=== PATIENT | male | born 1990 | race American Indian/Alaskan Native ===

== ENCOUNTER 2016-07-29 10:31 | Emergency (ER) | payer MEDICAID, OTHER ==
[2016-07-29] MEDS ORDERED: Ondansetron 8 MG Tab.DIS PO ONE (11:11)
[2016-07-29] MEDS ORDERED: Alum Hydroxide/Mag Hydroxide 15 ML, Lidocaine 2% 15 ML PO STA ×2 (11:11)
--- NOTE | 2016-07-29 11:57 | EDM.PDOC ---
ED HPI GENERAL MEDICAL PROBLEM - General Chief Complaint: Abdominal Pain Stated Complaint: STOMACH PAIN Time Seen by Provider: 07/29/16 10:32 Source of Information: Reports: Patient, Family History Limitations: Reports: No Limitations - History of Present Illness INITIAL COMMENTS - FREE TEXT/NARRATIVE: 26 years old NA come to the ed due to mid upper abd. pain one day after he ate out last night. Pt felt nauseated, did not vomit. Pain is located at his mid upper abdomen. Pt denies other acute medical issues at this time. Onset: Gradual Onset Date: 07/28/16 Onset Time: 08:00 Duration: Day(s):, Getting Worse Location: Reports: Abdomen Quality: Reports: Ache, Burning Severity: Moderate Improves with: Reports: None Worsens with: Reports: None Associated Symptoms: Reports: No Other Symptoms L upper abdomen Pain Score (Numeric/FACES): 0 - Related Data Allergies Allergy/AdvReac Type Severity Reaction Status Date / Time amoxicillin [Amoxicillin] Allergy Hives Verified 07/29/16 10:39 Penicillins Allergy Hives Verified 07/29/16 10:39 Home Meds: Home Meds Famotidine [Pepcid] 40 mg PO DAILY #20 tablet 07/29/16 [Rx] Ondansetron [Zofran ODT] 4 mg PO Q6H PRN #14 tab.dis 07/29/16 [Rx] Past Medical History - Past Health History Medical/Surgical History: Denies Medical/Surgical History Cardiovascular History: Reports: Hypertension Dermatologic History: Reports: Eczema - Infectious Disease History Infectious Disease History: Reports: Chicken Pox Social & Family History - Family History Family Medical History: Noncontributory - Tobacco Use Smoking Status *Q: Current Every Day Smoker Years of Tobacco use: 12 Packs/Tins Daily: 0.5 Used Tobacco, but Quit: No Second Hand Smoke Exposure: No - Caffeine Use Caffeine Use: Reports: Coffee, Energy Drinks, Soda, Tea - Alcohol Use Days Per Week of Alcohol Use: 1 Number of Drinks Per Day: 12 Total Drinks Per Week: 12 - Recreational Drug Use Recreational Drug Use: No Drug Use in Last 12 Months: Yes Recreational Drug Type: Reports: Marijuana/Hashish ED ROS GENERAL - Review of Systems Review Of Systems: See Below Constitutional: Reports: No Symptoms HEENT: Reports: No Symptoms Respiratory: Reports: No Symptoms Cardiovascular: Reports: No Symptoms Endocrine: Reports: No Symptoms GI/Abdominal: Reports: Abdominal Pain : Reports: No Symptoms Musculoskeletal: Reports: No Symptoms Skin: Reports: No Symptoms Neurological: Reports: No Symptoms Psychiatric: Reports: No Symptoms Hematologic/Lymphatic: Reports: No Symptoms Immunologic: Reports: No Symptoms ED EXAM, GI/ABD - Physical Exam Exam: See Below Exam Limited By: No Limitations General Appearance: Alert, WD/WN, Mild Distress Eyes: Bilateral: Normal Appearance Ears: Normal External Exam Nose: Normal Inspection, Normal Mucosa Throat/Mouth: Normal Inspection, Normal Lips Head: Atraumatic, Normocephalic Neck: Normal Inspection, Supple, Non-Tender, Full Range of Motion Respiratory/Chest: No Respiratory Distress, Lungs Clear, Normal Breath Sounds Cardiovascular: Normal Peripheral Pulses, Regular Rate, Rhythm, No Edema GI/Abdominal: Tenderness (epigastric) (Male) Exam: Deferred Rectal (Males) Exam: Deferred Back Exam: Normal Inspection, Full Range of Motion Extremities: Normal Inspection, Normal Range of Motion, Non-Tender Neurological: Alert, Oriented, CN II-XII Intact, Normal Cognition, Normal Gait, No Motor/Sensory Deficits Psychiatric: Normal Affect, Normal Mood Skin Exam: Warm, Dry, Intact, Normal Color Lymphatic: No Adenopathy Course - Vital Signs Text/Narrative:: 26 years old NA come to the ed due to mid upper abd. pain one day after he ate out last night. Pt felt nauseated, did not vomit. Pain is located at his mid upper abdomen. Pt denies other acute medical issues at this time. No Bleed. PE: Epigastric tenderness Labs: Elevated liver enzymes,(ASL 30 ALT 53 alk phos 135) not new, wbc 13.3 Amylase 59 Impression: gastritis, superficial TxL GI cocktail, Zofran Reexam: Pain subsided 100% Plan: D/c with instructions. Last Recorded V/S: Last Vital Signs Temp 36.5 C 07/29/16 10:32 Pulse 75 07/29/16 10:32 Resp 18 07/29/16 11:57 BP 124/70 07/29/16 11:57 Pulse Ox 99 07/29/16 11:57 - Orders/Labs/Meds Orders: Active Orders 24 hr Category Date Time Status EKG Documentation Completion [RC] ASDIRECTED Care 07/29/16 14:44 Inactive EKG 12 Lead [EK] Routine Ther 07/29/16 14:44 Stop Req Labs: Laboratory Tests 07/29/16 07/29/16 07/29/16 Range/Units 10:55 10:55 10:55 WBC 13.7 H (4.5-12.0) X10-3/uL RBC 5.68 (4.30-5.75) x10(6)uL Hgb 16.7 H (11.5-15.5) g/dL Hct 49.6 (30.0-51.3) % MCV 87.3 (80-96) fL MCH 29.4 (27.7-33.6) pg MCHC 33.7 (32.2-35.4) g/dL RDW 12.7 (11.5-15.5) % Plt Count 265 (125-369) X10(3)uL MPV 8.6 (7.4-10.4) fL Neutrophils % (Manual) 63 (46-82) % Band Neutrophils % 1 (0-6) % Lymphocytes % (Manual) 19 (13-37) % Monocytes % (Manual) 3 L (4-12) % Eosinophils % (Manual) 14 H (0-5) % Sodium 138 (135-145) mmol/L Potassium 3.9 (3.5-5.3) mmol/L Chloride 105 D (100-110) mmol/L Carbon Dioxide 26 (23-29) mmol/L BUN 12 (5-20) mg/dL Creatinine 0.9 (0.6-1.3) mg/dL Est Cr Clr Drug Dosing 143.64 mL/min Estimated GFR (MDRD) > 60 (>60) BUN/Creatinine Ratio 13.3 (9-20) Glucose 94 (80-116) mg/dL Calcium 9.6 (8.6-10.2) mg/dL Total Bilirubin 0.7 (0.1-1.3) mg/dL Direct Bilirubin 0.1 (0.1-0.2) mg/dL AST 30 H D (5-27) IU/L ALT 53 H D (14-26) IU/L Alkaline Phosphatase 135 H (56-112) IU/L Total Protein 8.0 (6.0-8.0) g/dL Albumin 4.2 (3.5-5.2) g/dL Amylase 59 (28-100) U/L Meds: Medications Discontinued Medications Generic Name Dose Route Start Last Admin Trade Name Freq PRN Reason Stop Dose Admin Al Hydroxide/Mg Hydroxide 15 0 ml 07/29/16 11:11 07/29/16 11:23 ml/ Lidocaine HCl 15 ml PO 07/29/16 11:12 15 ml ONETIME STA Administration Sodium Chloride 1,000 mls @ 999 mls/hr 07/29/16 14:45 Normal Saline IV ASDIRECTED [facility] Ondansetron HCl 8 mg 07/29/16 11:11 07/29/16 11:23 Zofran Odt PO 07/29/16 11:12 8 mg ONETIME ONE Administration Departure - Departure Time of Disposition: 11:55 Disposition: Home, Self-Care 01 Condition: good Clinical Impression: Gastritis Qualifiers: Gastritis type: unspecified gastritis Chronicity: acute Gastritis bleeding: without bleeding Qualified Code(s): K29.00 - Acute gastritis without bleeding - Discharge Information Prescriptions: Famotidine [Pepcid] 40 mg PO DAILY #20 tablet Ondansetron [Zofran ODT] 4 mg PO Q6H PRN #14 tab.dis PRN Reason: Nausea Instructions: Gastritis, Adult Referrals: PCP,None [Primary Care Provider] - Forms: ED Department Discharge Additional Instructions: Please take the meds as recommended, please follow up, come back if your symptoms get worse acutely. - My Orders Last 24 Hours: My Active Orders 07/29/16 14:44 EKG Documentation Completion [RC] ASDIRECTED EKG 12 Lead [EK] Routine - Assessment/Plan Last 24 Hours: My Active Orders 07/29/16 14:44 EKG Documentation Completion [RC] ASDIRECTED EKG 12 Lead [EK] Routine
[2016-07-29 11:59] VITALS: BP 124/70
[2016-07-29] MEDS ORDERED: Sodium Chloride 0.9% 1,000 ML IV SCH (14:45)
== END 2016-07-29 12:03 | disposition home or self-care (01) ==
LOC: FB.ED 10:31
DX: K29.00 Acute gastritis without bleeding (principal); I10 Essential (primary) hypertension; F17.210 Nicotine dependence, cigarettes, uncomplicated; Z88.0 Allergy status to penicillin; Z88.8 Allergy status to other drugs, medicaments and biological substances; Z88.1 Allergy status to other antibiotic agents
CPT/HCPCS: 36415; 80048; 80076; 82150; 85025; 99283; 99284; A9270

== ENCOUNTER 2017-06-07 13:23 | Emergency (ER) | payer MEDICAID, OTHER ==
[2017-06-07] MEDS ORDERED: Bupivacaine 0.5% 30 ML SDV INFILT ONE (13:24)
[2017-06-07 13:44] VITALS: BP 122/75
[2017-06-07] MEDS ORDERED: Cephalexin 500 MG Cap PO ONE (13:57)
[2017-06-07] MEDS ORDERED: Ibuprofen 600 MG Tab PO ONE (13:59)
--- NOTE | 2017-06-07 14:06 | EDM.PDOC ---
ED HPI GENERAL MEDICAL PROBLEM - General Chief Complaint: Laceration Stated Complaint: RT HAND BLEEDING Time Seen by Provider: 06/07/17 13:37 Source of Information: Reports: Patient, Family History Limitations: Reports: No Limitations - History of Present Illness INITIAL COMMENTS - FREE TEXT/NARRATIVE: 27 y.o. N A came to the ed after he was drinking last night and injured his right hand/palm on a nail sticking out of a door frame at about 13.00 today. Wound was bleeding. No Loss of function. No active bleed as the patient arrived her in the ed. No N/V/D or any other acute medical issues. BP 122/76 puls 76 Temp 36.7 Pulse ox 98% on RA. Onset: Today Onset Date: 06/07/17 Onset Time: 13:00 Duration: Hour(s): Location: Reports: Upper Extremity, Left (right palm) Quality: Reports: Ache Severity: Mild Improves with: Reports: Rest Worsens with: Reports: Movement Context: Reports: Trauma (on a door frame nail, sticking out. 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) Right Hand Pain Score (Numeric/FACES): 4 - Related Data Allergies Allergy/AdvReac Type Severity Reaction Status Date / Time amoxicillin [Amoxicillin] Allergy Hives Verified 07/29/16 10:39 Penicillins Allergy Hives Verified 06/07/17 13:35 Home Meds: Home Meds Cephalexin [Keflex] 500 mg PO Q6H #40 cap 06/07/17 [Rx] Past Medical History - Past Health History Medical/Surgical History: Denies Medical/Surgical History Cardiovascular History: Reports: Hypertension Dermatologic History: Reports: Eczema - Infectious Disease History Infectious Disease History: Reports: Chicken Pox Social & Family History - Family History Family Medical History: Noncontributory - Tobacco Use Smoking Status *Q: Current Every Day Smoker Years of Tobacco use: 12 Packs/Tins Daily: 1 Used Tobacco, but Quit: No Second Hand Smoke Exposure: No - Caffeine Use Caffeine Use: Reports: Coffee - Alcohol Use Days Per Week of Alcohol Use: 1 Number of Drinks Per Day: 12 Total Drinks Per Week: 12 - Recreational Drug Use Recreational Drug Use: No Drug Use in Last 12 Months: Yes Recreational Drug Type: Reports: Marijuana/Hashish ED ROS GENERAL - Review of Systems Review Of Systems: See Below Constitutional: Reports: No Symptoms HEENT: Reports: No Symptoms Respiratory: Reports: No Symptoms Cardiovascular: Reports: No Symptoms Endocrine: Reports: No Symptoms GI/Abdominal: Reports: No Symptoms : Reports: No Symptoms Musculoskeletal: Reports: No Symptoms Skin: Reports: Wound (Right palm) Neurological: Reports: No Symptoms Psychiatric: Reports: No Symptoms Hematologic/Lymphatic: Reports: No Symptoms Immunologic: Reports: No Symptoms ED EXAM, SKIN/RASH Exam: See Below Exam Limited By: No Limitations General Appearance: Alert, WD/WN, Mild Distress Eye Exam: Bilateral Eye: Normal Inspection Ears: Normal External Exam Nose: Normal Inspection Throat/Mouth: Normal Inspection Head: Atraumatic, Normocephalic Neck: Normal Inspection, Supple Respiratory/Chest: No Respiratory Distress, Lungs Clear Cardiovascular: Normal Peripheral Pulses, Regular Rate, Rhythm, No Edema, No Gallop, No Murmur, No Rub Peripheral Pulses: 2+: Radial (L) GI/Abdominal: Normal Bowel Sounds (Male) Exam: Deferred Rectal (Males) Exam: Deferred Back Exam: Normal Inspection, Full Range of Motion Extremities: Normal Range of Motion, No Pedal Edema, Normal Capillary Refill, Other (LAC right palm) Neurological: Alert, Oriented, CN II-XII Intact, Normal Cognition, Normal Gait, No Motor/Sensory Deficits Psychiatric: Normal Affect, Normal Mood Skin: Warm, Dry, Wound/Incision (LAC right palm 2 cm full thickness) Location, Skin: Upper Extremity, Right Associated features: Warmth, Tenderness Lymphatic: No Adenopathy ED SKIN PROCEDURES - Laceration/Wound Repair Right Anterior Lateral Hand Lac/Wound length In cm: 2 (full thickness) Appearance: Subcutaneous, Stellate Distal NVT: Neuro & Vascular Intact, No Tendon Injury Anesthetic Type: Local Local Anesthesia - Bupivicaine (Marcaine): 0.5% Plain Local Anesthetic Volume: 4cc Skin Prep: Providone-Iodine (Betadine) Saline Irrigation (cc's): 5 Exploration/Debridement/Repair: Wound Explored, In a Bloodless Field, Explored to Base, Minimal Debridement Closed with: Sutures Suture Size: 4-0 Suture Type: Interrupted, Other (ethilon) Tetanus Status Addressed: Yes (5 years ago) Complications: No Course - Vital Signs Text/Narrative:: 27 y.o. N A came to the ed after he was drinking last night and injured his right hand/palm on a nail sticking out of a door frame at about 13.00 today. Wound was bleeding. No Loss of function. No active bleed as the patient arrived her in the ed. No N/V/D or any other acute medical issues. TD UTD. BP 122/76 puls 76 Temp 36.7 Pulse ox 98% on RA. PE: WNWD N A with a 2 cm Lac right hand palmar aspect, laterally Procedure note: Please see above Impression: LAC right hand, palmar aspect. Tx: Wound repair, Keflex, Motrin Reexam: Improved, no complication form the procedure Plan: D/C with instructions Last Recorded V/S: Last Vital Signs Temp 36.6 C 06/07/17 13:37 Pulse 79 06/07/17 13:37 Resp 18 06/07/17 13:37 BP 122/75 06/07/17 13:37 Pulse Ox - Orders/Labs/Meds Meds: Medications Discontinued Medications Generic Name Dose Route Start Last Admin Trade Name Freq PRN Reason Stop Dose Admin Cephalexin 500 mg 06/07/17 13:57 06/07/17 14:03 Keflex PO 06/07/17 13:58 500 mg ONETIME ONE Administration Ibuprofen 600 mg 06/07/17 13:59 06/07/17 14:02 Motrin PO 06/07/17 14:00 600 mg ONETIME ONE Administration Departure - Departure Time of Disposition: 14:02 Disposition: Home, Self-Care 01 Condition: Good Clinical Impression: Laceration - Discharge Information Prescriptions: Cephalexin [Keflex] 500 mg PO Q6H #40 cap Instructions: Laceration Care, Adult, [id number], Stitches, Joel, or Adhesive Wound Closure, [id number] Referrals: PCP,None [Primary Care Provider] - Forms: ED Department Discharge Additional Instructions: Please apply neosporine ointment to wound twice daily, please take Keflex as recommended, wound check in 2 days, suture removal in 10 days. Please come to the ED if your symptoms get worse acutely.
== END 2017-06-07 14:08 | disposition home or self-care (01) ==
LOC: FB.ED 13:23
DX: S61.412A Laceration without foreign body of left hand, initial encounter (principal); Z88.0 Allergy status to penicillin; Z88.1 Allergy status to other antibiotic agents; F17.210 Nicotine dependence, cigarettes, uncomplicated; W45.0XXA Nail entering through skin, initial encounter
CPT/HCPCS: 12001; 99282; A9270-GY

== ENCOUNTER 2017-06-08 20:23 | Emergency (ER) | payer MEDICAID ==
[2017-06-08 20:45] VITALS: BP 137/63
[2017-06-08] MEDS ORDERED: Levofloxacin/Dextrose 5%-Water 750 MG in Premix Bag 1 BAG IV ONE (20:58)
--- NOTE | 2017-06-08 20:58 | EDM.PDOC ---
ED HPI GENERAL MEDICAL PROBLEM - General Chief Complaint: Skin Complaint Stated Complaint: SWELLING ON RT HAND Time Seen by Provider: 06/08/17 20:30 Source of Information: Reports: Patient, Family, Old Records History Limitations: Reports: No Limitations - History of Present Illness INITIAL COMMENTS - FREE TEXT/NARRATIVE: Sam returns to [facility] ED with pain, swelling, and red streaking affecting the wound of L thenar eminence, extending into the volar aspect of the L forearm to the antecubital fossa. He received sutures yesterday, but did not fill antibx prescription. Sutures were removed from the L hand, revealing a wound abscess. right hand Pain Score (Numeric/FACES): 8 - Related Data Allergies Allergy/AdvReac Type Severity Reaction Status Date / Time amoxicillin [Amoxicillin] Allergy Hives Verified 06/08/17 20:43 Penicillins Allergy Hives Verified 06/08/17 20:43 Home Meds: Home Meds Cephalexin [Keflex] 500 mg PO Q6H #40 cap 06/07/17 [Rx] Past Medical History - Past Health History Medical/Surgical History: Denies Medical/Surgical History Cardiovascular History: Reports: Hypertension Dermatologic History: Reports: Eczema, Other (See Below) (wound infection) - Infectious Disease History Infectious Disease History: Reports: Chicken Pox Social & Family History - Family History Family Medical History: Noncontributory - Tobacco Use Smoking Status *Q: Current Every Day Smoker Years of Tobacco use: 12 Packs/Tins Daily: 1 Used Tobacco, but Quit: No Second Hand Smoke Exposure: No - Caffeine Use Caffeine Use: Reports: Coffee - Alcohol Use Days Per Week of Alcohol Use: 1 Number of Drinks Per Day: 12 Total Drinks Per Week: 12 - Recreational Drug Use Recreational Drug Use: No Drug Use in Last 12 Months: Yes Recreational Drug Type: Reports: Marijuana/Hashish ED ROS GENERAL - Review of Systems Review Of Systems: ROS reveals no pertinent complaints other than HPI. ED EXAM, SKIN/RASH Exam: See Below Exam Limited By: No Limitations General Appearance: Alert, WD/WN, Mild Distress Head: Normocephalic Neck: Normal Inspection, Supple, Non-Tender Respiratory/Chest: Lungs Clear Cardiovascular: Regular Rate, Rhythm Back Exam: Normal Inspection Extremities: Normal Range of Motion, Increased Warmth (L thenar eminence, with purulent exudate from wound), Redness (L hand and forearm, with lymphangitic features. ) Neurological: Alert, Oriented, CN II-XII Intact, Normal Cognition, Normal Reflexes, No Motor/Sensory Deficits Psychiatric: Normal Affect, Normal Mood Course - Vital Signs Text/Narrative:: Following suture removal, purulent material was cultured, and the wound of L hand was thoroughly cleaned, rinsed, and dressed. He was administered Levoquin 750 mg IV prior to discharge. Last Recorded V/S: Last Vital Signs Temp 36.8 C 06/08/17 20:30 Pulse 102 H 06/08/17 20:30 Resp 18 06/08/17 20:30 BP 137/63 06/08/17 20:30 Pulse Ox 100 06/08/17 20:30 - Orders/Labs/Meds Orders: Active Orders 24 hr Category Date Time Status CULTURE ROUTINE + SMEAR [RM] Stat Lab 06/08/17 20:30 Received Levofloxacin/Dextrose 5%-Water [Levaquin in D5W 750 MG/ Med 06/08/17 20:58 Active 150 ML] 750 mg Premix Bag 1 bag IV ONETIME Medication Orders Levofloxacin/Dextrose 750 mg/ (Premix) 150 mls @ 100 mls/hr IV ONETIME ONE Stop: 06/08/17 22:27 Last Admin: 06/08/17 21:06 Dose: 100 mls/hr Meds: Medications Generic Name Dose Route Start Last Admin Trade Name Priyank PRN Reason Stop Dose Admin Levofloxacin/Dextrose 750 mg/ 150 mls @ 100 mls/hr 06/08/17 20:58 06/08/17 21 :06 Premix IV 06/08/17 22:27 100 mls/hr ONETIME ONE Administration Departure - Departure Time of Disposition: 22:32 Disposition: Home, Self-Care 01 Condition: Fair Clinical Impression: Cellulitis Qualifiers: Site of cellulitis: extremity Site of cellulitis of extremity: upper extremity Laterality: left Qualified Code(s): L03.114 - Cellulitis of left upper limb - Discharge Information Referrals: PCP,None [Primary Care Provider] - Forms: ED Department Discharge - Problem List & Annotations (1) Cellulitis SNOMED Code(s): 016370765 Code(s): L03.90 - CELLULITIS, UNSPECIFIED Status: Acute Current Visit: Yes - Problem List Review Problem List Initiated/Reviewed/Updated: Yes - My Orders Last 24 Hours: My Active Orders 06/08/17 20:30 CULTURE ROUTINE + SMEAR [RM] Stat 06/08/17 20:58 Levofloxacin/Dextrose 5%-Water [Levaquin in D5W 750 MG/150 ML] 750 mg Premix Bag 1 bag IV ONETIME - Assessment/Plan Last 24 Hours: My Active Orders 06/08/17 20:30 CULTURE ROUTINE + SMEAR [RM] Stat 06/08/17 20:58 Levofloxacin/Dextrose 5%-Water [Levaquin in D5W 750 MG/150 ML] 750 mg Premix Bag 1 bag IV ONETIME Plan: See PCP or ED tomorrow for wound inspection, update on WC, and oral antibx prescription.
== END 2017-06-08 22:39 | disposition home or self-care (01) ==
LOC: FB.ED 20:23
DX: L03.114 Cellulitis of left upper limb (principal); F17.210 Nicotine dependence, cigarettes, uncomplicated; I10 Essential (primary) hypertension; Z88.1 Allergy status to other antibiotic agents; Z88.0 Allergy status to penicillin
CPT/HCPCS: 87070; 87077; 87186; 87205; 96365; 99283; J1956